=== PATIENT | female | born 1990 | race Two or more races ===

== ENCOUNTER 2025-02-26 11:37 | Outpatient (CLI) | payer BC | END 2025-02-26 17:00 | disposition home or self-care (01) | LOC: LAB 11:37 | DX: Z31.41 Encounter for fertility testing (principal); Z32.00 Encounter for pregnancy test, result unknown; Z13.29 Encounter for screening for other suspected endocrine disorder; Z11.59 Encounter for screening for other viral diseases | CPT/HCPCS: 82670; 84144 ==

== ENCOUNTER → 2025-03-16 | Outpatient (CLI) | payer BC | END | disposition home or self-care (01) | LOC: LAB 07:50 | PROVIDERS: ATTEND Student in an Organized Health Care Education/Training Program | DX: Z31.41 Encounter for fertility testing (principal); Z32.00 Encounter for pregnancy test, result unknown; Z13.29 Encounter for screening for other suspected endocrine disorder; Z11.59 Encounter for screening for other viral diseases | CPT/HCPCS: 36415; 82670; 84144; 84702 ==

== ENCOUNTER 2025-03-19 07:32 | Outpatient (CLI) | payer BC | END 2025-03-19 17:00 | disposition home or self-care (01) | LOC: LAB 07:32 | PROVIDERS: ATTEND Student in an Organized Health Care Education/Training Program | DX: Z31.83 Encounter for assisted reproductive fertility procedure cycle (principal); Z32.00 Encounter for pregnancy test, result unknown | CPT/HCPCS: 36415; 84702 ==

== ENCOUNTER 2025-03-26 07:17 | Outpatient (CLI) | payer BC | END 2025-03-26 17:00 | disposition home or self-care (01) | LOC: LAB 07:17 | PROVIDERS: ATTEND Student in an Organized Health Care Education/Training Program | DX: Z31.83 Encounter for assisted reproductive fertility procedure cycle (principal); Z13.29 Encounter for screening for other suspected endocrine disorder; Z32.00 Encounter for pregnancy test, result unknown | CPT/HCPCS: 36415; 82670; 84144; 84702 ==